=== PATIENT | female | born 1970 | race Caucasian/White ===

== ENCOUNTER 2018-12-27 19:18 | Emergency (ER) | payer MEDICAID ==
--- NOTE | 2018-12-27 19:46 | EDPHY ---
General - History Smoking Status: Never smoked Time Seen by Provider: 12/27/18 19:45 Narrative: CLINICAL IMPRESSION: Right hand contusion ASSESSMENT/PLAN: Patient is a 48-year-old female with a history of diverticulosis who presents with complaint of right hand pain after practicing self defense on a punching bag earlier this morning. Patient is nontoxic-appearing, she is in no acute distress on arrival. Hand x-ray reveals soft tissue swelling. There was no evidence of acute fracture, dislocation, compartment syndrome or neurovascular compromise. Her history and physical examination is most consistent with right hand contusion. The patient was placed in an Yaw wrap and Velcro splint for comfort. CMS intact post splint placement. She will otherwise continue Tylenol and ibuprofen. She is well established with her PCP and will call to schedule follow-up on Saturday. Return precautions discussed-patient to return to the emergency Department for significantly worsening or uncontrolled pain, significant swelling, numbness or tingling of the extremity, paleness or coolness of her digits, fever or for any other concerning symptom. The patient verbalizes understanding and she is in agreement with this plan. DIFFERENTIAL DX: Differential diagnosis including but not limited to and in no particular order contusion, sprain, fracture, dislocation, compartment syndrome ED PROCEDURES: Procedure: Splint placement. A Velcro splint was applied. After application of the splint I returned and re- examined the patient. The splint was adequately immobilizing the joint and distal to the splint the patient's circulation and sensation was intact. ED COURSE: 2027: On repeat examination and after splint placement the patient is feeling much more comfortable. CHIEF COMPLAINT: Right hand pain HPI: Patient is a 48-year-old female with a history of diverticulosis who presents to the emergency department with complaints of right hand pain after practicing self defense on a punching bag early this morning. Patient reports she was repeatedly punching a punching bag early this morning when she had a sudden onset of right hand pain. Patient reports increased swelling and bruising since that time, is concerned that she might have fractured her hand. She denies any numbness or tingling of the extremity, she denies any open wounds. She is right-hand dominant. She has been taking ibuprofen with mild relief of her discomfort. Patient complains of 4th digit pain, and hand pain. Denies any wrist or arm pain. PAST MEDICAL HISTORY: Diverticulosis Family History: Not contributory Social History: Denies smoking ROS: A full 10 point review of systems was negative except for those mentioned in HPI. PHYSICAL EXAM: General Appearance: Alert, well-appearing, no acute distress. HENT: Normocephalic, atraumatic. External ears are normal. Nares are clear, mucosa is pink. Oropharynx is clear. Eyes: PERRLA, EOMI. Conjunctiva pink, no pallor or injection. Neck: Supple, nontender, no lymphadenopathy, no midline pain, FROM, no meningismus. Respiratory: There are no retractions, lungs are clear to auscultation. Cardiac: Regular rate and rhythm, no murmurs or gallops. Gastrointestinal: Abdomen is soft, nontender, bowel sounds normal, no masses/ hernia, no rigidity, guarding or focal peritoneal findings. Skin: Warm, dry. Upper Extremities: Left upper extremity is unremarkable- Intact distal pulses, Full range of motion intact, no tenderness, no ecchymosis or edema. Right upper extremity reveals ecchymosis and soft tissue swelling overlying the dorsal aspect of the right hand. Patient has mild tenderness to palpation of the proximal phalanx of the 4th digit, she is tender along the 3rd through 5th MCP joints as well as mild tenderness at the 4th metacarpal. There is no obvious bony deformity. Two point discrimination is intact distally at each digit. Patient has no carpal or wrist tenderness to palpation, she is able to flex, extend, invert and mona without difficulty. She is able to supinate and pronate without difficulty. The radial, ulnar and median nerves were all tested. Radial nerve: Patient is able to extend wrist and fingers of the local joints. Ulnar nerve: Patient is able to abduct all fingers. Median nerve patient is able to oppose thumb to pinky. 2+ radial pulse. Right upper extremities otherwise unremarkable. Lower Extremities: Intact distal pulses, No edema, No tenderness, No cyanosis, full range of motion intact, No calf tenderness bilaterally. MEDICAL DECISION MAKING: Patient was seen independently. Secondary supervising physician at time of evaluation was Dr. Alexander, he did not evaluate this patient. Diagnosis: Right hand contusion. New, requires workup Summary: See Assessment and Plan for summary of ED visit Clinical lab tests: Not applicable. Independent visualization of images, tracing, or specimens: Yes. Decision to obtain medical records or history from someone other than the patient: No Review / Summarize previous medical records: Yes Patient Progress: Stable, discharge. (Leslee Manzanares) Medical Decision Making: I did not see this patient while she was in the emergency department. However her care was discussed with the PA while the patient was in the department. I agree with treatment plan and management (Timothy Alexander) - Objective Vital Signs: Initial Vital Signs Temperature (C) 36.5 C 12/27/18 19:22 Heart Rate 102 H 12/27/18 19:22 Respiratory Rate 16 12/27/18 19:22 Blood Pressure 162/106 H 12/27/18 19:22 O2 Sat (%) 95 12/27/18 19:22 O2 Delivery Mode Room Air Allergies/Adverse Reactions: sulfamethoxazole [From Bactrim] Allergy (Verified 12/27/18 19:25) Hives trimethoprim [From Bactrim] Allergy (Verified 12/27/18 19:25) Hives Home Medications: Medication Instructions Recorded Adderall 10 MG (*) 12/27/18 Departure - Departure Disposition: Home, Routine, Self-Care Clinical Impression: Contusion Condition: Good Instructions: Contusion in Adults (ED) Additional Instructions: DISCHARGE INSTRUCTIONS FROM YOUR DOCTOR Thank you for visiting our emergency department today. Please keep in mind that discharge from the emergency department does not mean that there is nothing wrong - it simply means that we have not identified an emergency condition that requires further evaluation or treatment in the hospital. You should always plan to follow up with primary care for re-evaluation of your condition in the next 2-3 days. If you have been referred to a specialist, please call as soon as possible ( today or tomorrow) to schedule your follow up appointment at the appropriate time. You have been given a referral for hand specialist, please follow-up should you have ongoing pain. Otherwise follow up with your primary care provider. Rest, ice (on and off), elevate the wrist and hand as possible above the level of the heart to decrease pain and swelling. Wear the splint as applied for comfort, you may remove it. For pain control: You may take Tylenol, I recommend 500-1000 mg every 6-8 hours as needed. Take with food and a full glass of water. Stop taking if this is upsetting her stomach. Do not exceed 4000 mg in a 24 hr period. You may also take ibuprofen, recommend 400 mg every 6 hr. Take with food and a full glass of water. Stop taking if this upsets her stomach. Do not exceed 2400 mg in a 24 hr period. Continue your regular medications as prescribed. Return for increased pain or swelling, numbness, tingling or weakness of the fingers, discoloration of the fingers, fever,inability to move your fingers or any other new, worsening or worrisome symptoms. People present with illnesses and injuries in different ways, and it is always possible that we have missed something. You may always return for re-evaluation if symptoms worsen or if they are not improving or if you develop new/different symptoms. Again, thank you for choosing our emergency department. We hope that you feel better. Referrals: HERNAN MORENO [Other] - 1-2 days without fail Ander Lovett MD [Medical Doctor] - Follow Up Only If Needed (This is a referral for hand specialist should you needed.)
[2018-12-27 20:29] VITALS: BP 132/81
== END 2018-12-27 20:36 | disposition home or self-care (01) ==
DX: S60.221A Contusion of right hand, initial encounter (principal)